=== PATIENT | male | born 1975 | race Caucasian/White ===

== ENCOUNTER 2017-01-24 18:14 | Emergency (ER) | payer OTHER | END 2017-01-24 18:52 | disposition home or self-care (01) | LOC: ER 18:14 | DX: S05.01XA Injury of conjunctiva and corneal abrasion without foreign body, right eye, initial encounter (principal); F17.200 Nicotine dependence, unspecified, uncomplicated; Y93.I9 Activity, other involving external motion; Y93.89 Activity, other specified | CPT/HCPCS: 90471; 90714; 99283; A9270-GY ==